=== PATIENT | female | born 1940 | race Caucasian/White ===

== ENCOUNTER 2018-01-04 02:01 | Inpatient (IN) | payer MEDICARE, OTHER ==
--- NOTE | 2017-12-24 15:49 | HISTORY AND PHYSICAL ---
DATE OF ADMISSION: January 04, 2018 IDENTIFICATION/CHIEF COMPLAINT Lenora is a 75-year-old woman with the chief complaint of right knee pain. HISTORY OF PRESENT ILLNESS Patient has a long-standing history of knee arthritis, progressively painful and debilitating and refractory to conservative care. Surgery is indicated to relieve symptoms after failure of nonoperative measures. PAST MEDICAL HISTORY History of bleeding ulcer. She is a [employer] and will not accept blood products. PAST SURGICAL HISTORY * Ulcer surgery. * Hernia repair. * Appendectomy. * Treatment of a lump in the neck. * Shoulder surgery. * Foot surgery. * Hysterectomy. * Stomach bypass. * Cholecystectomy. ALLERGIES 1. PENICILLIN. 2. TETRACYCLINE. 3. SULFA. 4. She is sensitive to ASPIRIN which aggravates her ulcer. 5. She also is intolerant of CODEINE. CURRENT MEDICATIONS * Mobic 50 mg p.o. q.day. * Lasix 40 mg p.o. q.day p.r.n. SOCIAL HISTORY Negative for tobacco and alcohol use. FAMILY HISTORY Notable for a sister with PR and a mother who from a stroke. REVIEW OF SYSTEMS Notable for bladder frequency. PHYSICAL EXAMINATION: GENERAL: This is a well-developed, well-nourished female who appears staged age. HEENT: Normocephalic, atraumatic. NECK: Supple. LUNGS: Clear. HEART: Regular. ABDOMEN: Soft. ORTHOPEDIC EXAM: She has valgus deformity of the knee. She has an effusion present. Crepitus is noted. She is mildly stiff at the end range. The knee is grossly stable. Extensor function is intact. Skin is intact. Calves are nontender. Neurovascular function is intact. IMAGING Radiographs demonstrate end-stage knee arthritis. ASSESSMENT Right knee degenerative joint disease, progressively painful and debilitating and refractory to conservative care. PLAN Per patient request we are going to proceed with total knee arthroplasty. The nature of the procedure, risks, benefits, the anticipated rehabilitative course were reviewed. The risks include, but are not limited to , major medical or anesthetic complication, infection, neurovascular injury, blood transfusion, stiffness, scarring, fracture, tendon rupture or instability, implant loosening , migration or failure, persistent or recurrent pain, need for additional surgery and other unforeseen. She understands and wishes to proceed. A signed permit was placed in the chart. No guarantees are given or implied. STU
[2018-01-04] VITALS (13 sets, daily range): BP systolic 101–155; BP diastolic 42–84
[~2018-01-04] VITALS: Ht 157.5 cm; Wt 94.3 kg
[~2018-01-04 02:01] MED LIST: ALEVE; ASPI81TA15 PO; CLI150 PO; COLON CLEANSE; DAILY VITAMIN; MELO-207 PO; NAPR220C12 PO; OXYGEN INH; PAPAYA; PER PO; TRA50 PO
[2018-01-04] MEDS ORDERED: LIDOCAINE MPF 1% 5 ML VIAL ONE (09:30)
[2018-01-04] MEDS ORDERED: PROPOFOL EMUL(*) 10MG/ML 20 ML 20 ML ONE (09:30)
[2018-01-04] MEDS ORDERED: ONDANSETRON 4 MG/2 ML VIAL ONE (09:30)
[2018-01-04] MEDS ORDERED: DEXAMETHASONE SOD 4 MG/ML VIAL ONE (09:30)
[2018-01-04] MEDS ORDERED: cloNIDine EPIDUR INJ 100MCG/ML 40 MCG, ROPIVACAINE 0.5% 20 ML VIAL 25 ML, EPINEPHrine H... INJ ONE (11:00)
[2018-01-04] MEDS ORDERED: CLINDAMYCIN(*) 900 MG/NS 50 ML 50 ML IVPB ONE (11:00)
[2018-01-04] MEDS ORDERED: TRANEXAMIC AC 1000 MG/10ML SDV 1,000 MG in DEXTROSE 5% 50 ML BAG 50 ML IV ONE (11:00)
[2018-01-04] MEDS ORDERED: MIDAZOLAM 2 MG/2 ML VIAL IVP PRN (11:00)
[2018-01-04] MEDS ORDERED: LIDOCAINE/SOD BICARB 8.4% SYR ID ONE (11:00)
[2018-01-04] MEDS ORDERED: NORMOSOL R SOLN(*) 1000 ML BAG 1,000 ML IV PRN ×2 (11:00→16:40)
[2018-01-04] MEDS ORDERED: ACETAMINOPHEN 500 MG TAB PO ONE (11:00)
[2018-01-04] MEDS ORDERED: PREGABALIN 75 MG CAPSULE PO ONE (11:00)
[2018-01-04] MEDS ORDERED: FAMOTIDINE 20 MG TAB PO ONE (11:00)
[2018-01-04] MEDS ORDERED: fentaNYL CITR 100 MCG/2 ML AMP ONE ×2 (11:53→14:28)
[2018-01-04] MEDS ORDERED: METOCLOPRAMIDE 10 MG/2 ML SDV ONE (11:55)
[2018-01-04] MEDS ORDERED: NS(*) 0.9% 250 ML BAG 0 ML ONE (12:01)
[2018-01-04] MEDS ORDERED: ePHEDrine 25 MG/5 ML DISP.SYR IVP ONE (13:08)
--- NOTE | 2018-01-04 14:53 | RADIOLOGY IMAGING REPORT ---
FACILITY: [facility] PATIENT NAME: Lenora Jones : 1940 MR: [id number] V: [id number] EXAM DATE: ORDERING PHYSICIAN: AUDRA STONER TECHNOLOGIST: Location: [facility] Patient: Lenora Jones : 1940 Visit/Account:[id number] Date of Sevice: 01/04/2018 KNEE LIMITED RIGHT Indication: Postop knee Comparison: None available Findings: Postoperative films from three part TKA. Components appear well aligned. No abnormal lucencies are identified. Alignment is neutral. IMPRESSION: 1. Unremarkable appearing postop TKA Report Dictated By: Gian Jonas at 01/04/2018 2:47 PM Report E-Signed By: Gian Jonas at 01/04/2018 2:48 PM WSN:[id number]
--- NOTE | 2018-01-04 16:25 | Hospitalist Consultation ---
History of Present Illness Requesting Physician Dr. Gallardo Reason for Consult Medical Management Chief Complaint s/p right total knee replacement History of Present Illness She was admitted s/p right total knee replacement. It is reported the surgery went well and without complication. History Problems: (1) History of gastric bypass (2) History of bleeding ulcers Status: Resolved Home Meds Reported Medications Meloxicam (MELOXICAM) 15 Mg Tablet, 15 MG PO QDAY 12/28/17 Naproxen Sodium (ALEVE) 220 Mg Capsule, 220 MG PO TID Y for PAIN, CAPSULE 12/28/17 Discontinued Reported Medications Oxygen (Oxygen) 2 L Inha, 2 L INH PRN 09/06/12 Aspirin (ASPIRIN) 81 Mg Tablet.dr, 81 MG PO QDAY 09/06/12 Oxycodone/Acetaminophen (OXYCODONE/ACETAMINOPHEN 5MG/325 MG) 5 Mg/325 Mg Tab, 1 - 2 TAB PO Q4-6H Y 09/05/12 Clindamycin Hcl (Cleocin) 150 Mg Cap, 300 MG PO Q8H 09/05/12 Allergies: Coded Allergies: codeine (Verified Allergy, Intermediate, NAUSEA/VOMITING, 12/29/17) oxytetracycline (Verified Allergy, Intermediate, RASH, 12/29/17) Penicillins (Verified Allergy, Mild, RASH, 09/02/12) Sulfa (Sulfonamide Antibiotics) (Verified Allergy, Mild, RASH, 09/02/12) aspirin (Verified Allergy, Mild, RASH, 09/02/12) Patient History: FH: CVA (cerebrovascular accident) MOTHER FH: ME (myocardial infarction) BROTHER OR SISTER FH: Parkinson's disease FATHER Hx Smoking: No Smoking Status: Never Smoker Caffeine Intake: Coffee Caffeine/Cups Per Day: 3 CUPS DAILY Hx Alcohol Use: No Hx Substance Use Disorder: No Social Drug Use: Never History of IV Drug Use: No Review of Systems All Systems Reviewed/Normal: Yes, Except as Noted Exam Vital Signs Vital Signs Date Time Temp Pulse Resp B/P (MAP) Pulse Ox O2 Delivery O2 Flow Rate FiO2 01/04/18 16:00 85 116/58 (77) 93 01/04/18 15:44 Nasal Cannula 4.0 01/04/18 15:31 97.6 20 General Appearance: Alert, Awake, No Acute Distress, Afebrile Neuro: No Gross deficits Cardiovascular: Regular Rate and Rhythm Respiratory: No Respiratory Distress, Clear to Auscultation GI: Abd Soft and Non-Tender Extremities: No Edema Psych: Alert & Oriented X3, Appropriate Mood & Affect Assessment and Plan Problems: (1) Status post total right knee replacement Status: Acute Assessment & Plan: Followed by Dr. Gallardo. She will be placed on Aspirin 81mg twice daily for DVT prophylaxis secondary to history of bleeding ulcers. (2) History of bleeding ulcers Status: Resolved Assessment & Plan: She has a history of bleeding ulcers. She did require a surgery to repair the ulcer. We will place her on Protonix daily to help with aspirin to reduce the risk of bleeding ulcers. Venous Thromboembolism Antithrombotics Is Pt On Any Antithrombotics?: No Exam Sepsis Risk: No Definite Risk ABHILASH KHOURY TILESETTER January 04, 2018 16:25
[2018-01-04] MEDS ORDERED: BISACODYL 10 MG SUPP PR PRN (16:40)
[2018-01-04] MEDS ORDERED: PROMETHAZINE 25 MG/ML 1 ML AMP IVP PRN (16:40)
[2018-01-04] MEDS ORDERED: BENZOCAINE/MENTHOL 1 EACH LOZG PO PRN (16:40)
[2018-01-04] MEDS ORDERED: diphenhydrAMINE 50 MG/ML VIAL IVP PRN (16:40)
[2018-01-04] MEDS ORDERED: MAGNESIUM HYDROXIDE* 30ML UDCP PO PRN (16:40)
[2018-01-04] MEDS ORDERED: FLUSH 10 ML SYR IVP PRN (16:40)
[2018-01-04] MEDS ORDERED: ZOLPIDEM TARTRATE 5 MG TAB PO PRN (16:40)
[2018-01-04] MEDS ORDERED: ACETAMINOPHEN 325 MG TAB PO PRN (16:40)
[2018-01-04] MEDS ORDERED: diphenhydrAMINE 25 MG CAP PO PRN (16:40)
[2018-01-04] MEDS: APAP/HYDROCODONE 325/7.5 TAB PO PRN ×2 (16:48→22:07)
[2018-01-04] MEDS: IBUPROFEN 800 MG TAB PO SCH (16:48)
[2018-01-04] MEDS: DIAZEPAM 5 MG TAB PO PRN (19:40)
[2018-01-04] MEDS: CLINDAMYCIN(*) 900 MG/NS 50 ML 50 ML IVPB SCH (19:41)
--- NOTE | 2018-01-04 20:31 | OPERATIVE REPORT 1 ---
EVENT DATE: January 04, 2018 SURGEON: Wally Gallardo MD ANESTHESIOLOGIST: Juan Carlos Kunz MD ANESTHESIA: General plus spinal. BOTTLE CASER: RACHEL Cuellar PREOPERATIVE DIAGNOSIS Right knee degenerative joint disease. POSTOPERATIVE DIAGNOSIS Right knee degenerative joint disease. PROCEDURE PERFORMED Right total knee arthroplasty. ESTIMATED BLOOD LOSS Minimal. DRAINS None. SPECIMENS None. COMPLICATIONS None apparent. TOURNIQUET TIME 46 minutes IMPLANTS USED CSMGathlon Knee System with a 4 right PS femur, 4 standard tibial baseplate, 33 mm universal symmetric, all-polyethylene patellar button, and an 11 mm PS tibial tray liner. Polyethylene is X3. INDICATIONS Adriana has intractable pain related to end-stage knee arthritis. Surgery is indicated to relieve pain and improve function after failure of nonoperative measures. DESCRIPTION OF PROCEDURE Patient is taken to the operating room and placed supine on the operating table. General anesthesia is induced after spinal block is administered by the anesthesiologist. Antibiotics and TXA are administered IV. Right lower extremity is prepped and draped in the usual sterile fashion for knee arthroplasty. Limb exsanguinated with an Esmarch bandage. Tourniquet inflated to 275 mmHg. Midline incision is made, carried down through the skin and subcutaneous tissue to the extensor mechanism. Medial parapatellar arthrotomy is performed. Patella is everted. Knee is brought into the flexed position. Fat pad, anterior horns of the menisci, and the PCL are resected. There is no ACL. Subperiosteal capsule released is performed around the upper portion of the tibial plateau. A step drill is used to enter the distal femur. A 10-inch long alignment guide is used to engage the isthmus, cut set for 6 degrees of valgus relative to the anatomic axis. The 10 mm resection block is applied, pinned, and cuts made with an oscillating saw. The AP sizing guide is applied, positioned for 3 degrees of external rotation relative to the posterior condyles. A size 4 is optimal without risk of notching. The four-in-one cutting block is applied. Anterior, posterior, posterior chamfer, and anterior chamfer cuts are made respectively. PS block is applied and centered. Medial and lateral bone is removed from the box. Trial femur has nice [id number] fit. Attention is turned to tibial preparation. The extramedullary guide is applied, positioned for varus, valgus, posterior slope, and rotation. This is set to resect 2 mm from the relatively deficient lateral tibial plateau. It is dropped down a millimeter or two to ensure an adequate cut. Block is pinned. Extramedullary alignment check is made. Cuts made with an oscillating saw. In order to balance the knee, some of the IT band is released subperiosteally off Gerdy tubercle, and the popliteus is recessed out of its femoral hiatus. This creates balanced and symmetric gaps. The size 4 tibial baseplate provides optimum bony coverage without soft tissue overhang. This is inserted along with the trial liner and trial femur. Knee is brought to extension. Patella is everted and taken from the starting thickness of 22 to a residual of 14 with a patellar clamp and oscillating saw. The 33 provides optimum bony coverage without soft tissue overhang. Lug holes are drilled. Patella does not track properly. Lateral retinaculum is tight despite appropriate rotational alignment of the other components. Lateral release is required. This is performed inside-out with electrocautery using standard technique. Subsequently , the patella traces nicely. Final tibial preparation consists of assuring appropriate rotational and translational positioning of the component. The boss is reamed. Fin is punched. Surfaces are copiously lavaged. Mixed polymethyl methacrylate is made, and the components are cemented in a single stage. Once the cement is fully polymerized, tourniquet is deflated. Hemostasis is assured. The 11 PS tibial tray liner fills up the gap ideally. The actual liner is then inserted and locked into the tibial baseplate. Hemostasis is assured. Wound is copiously lavaged. Arthrotomy is closed in flexion with #2 Ethibond, subcutaneous tissue with 3-0 Vicryl, skin with surgical laurent. Xeroform and 4 x 4's applied as a dry, sterile dressing, a compression wrap, and a rehab brace. The patient was awakened from anesthesia and taken to the recovery room in stable condition having tolerated the procedure well. Plan is for standard TKA rehab protocol. [facility]
[2018-01-05] MEDS: IBUPROFEN 800 MG TAB PO SCH ×3 (00:14→16:44)
[2018-01-05] MEDS: APAP/HYDROCODONE 325/7.5 TAB PO PRN ×3 (02:17→17:41)
[2018-01-05] MEDS: DIAZEPAM 5 MG TAB PO PRN ×2 (04:58→22:08)
[2018-01-05] MEDS: CLINDAMYCIN(*) 900 MG/NS 50 ML 50 ML IVPB SCH ×2 (04:58→11:27)
[2018-01-05 05:00] VITALS: BP 108/62
[2018-01-05 07:40] VITALS: BP 118/52
[2018-01-05] MEDS: PANTOPRAZOLE SOD 40 MG TABEC PO SCH (08:26)
[2018-01-05] MEDS: ASPIRIN 81 MG ENTERIC COATED PO SCH ×2 (08:26→22:08)
[2018-01-05] MEDS ORDERED: ASPIRIN 325 MG TAB PO SCH (09:00)
--- NOTE | 2018-01-05 11:17 | Hospitalist Progress Note ---
Subjective Progress Notes Subjective She has no complaints this morning. Patient Complains of: Cardiovascular: No: Chest Pain Respiratory: No: Shortness of Breath Physical Exam Vital Signs Date Time Temp Pulse Resp B/P (MAP) Pulse Ox O2 Delivery O2 Flow Rate FiO2 01/05/18 07:52 95 Nasal Cannula 4.0 01/05/18 07:40 97.9 70 118/52 (74) 01/04/18 19:40 97.0 01/04/18 15:31 20 Intake and Output 01/06/18 01:00 Intake Total 770 ml Balance 770 ml Intake Oral 720 ml IV Total 50 ml General Appearance: Alert, Awake, No Acute Distress, Afebrile Neuro: No Gross deficits Cardiovascular: Regular Rate and Rhythm Respiratory: No Respiratory Distress, Clear to Auscultation Extremities: Perfused, No Edema Psych: Alert & Oriented X3, Appropriate Mood & Affect Assessment and Plan Problems: (1) Status post total right knee replacement Status: Acute Assessment & Plan: Followed by Dr. Gallardo. She will be placed on Aspirin 81mg twice daily for DVT prophylaxis secondary to history of bleeding ulcers. (2) History of bleeding ulcers Status: Resolved Assessment & Plan: She has a history of bleeding ulcers. She did require a surgery to repair the ulcer. We will place her on Protonix daily to help with aspirin to reduce the risk of bleeding ulcers. Exam Sepsis Risk: No Definite Risk ABHILASH KHOURY GIRLS TENNIS COACH January 05, 2018 11:17
[2018-01-05 15:07] VITALS: BP 125/69
[2018-01-05 17:44] VITALS: Ht 157.5 cm; Wt 94.3 kg
[2018-01-05 20:17] VITALS: BP 111/55
[2018-01-05 22:09] VITALS: BP 114/48
[2018-01-06] MEDS: IBUPROFEN 800 MG TAB PO SCH ×3 (01:25→17:37)
[2018-01-06 03:22] VITALS: BP 124/56
[2018-01-06] MEDS: APAP/HYDROCODONE 325/7.5 TAB PO PRN ×4 (03:23→21:47)
[2018-01-06 07:30] VITALS: BP 129/63
[2018-01-06] MEDS: PANTOPRAZOLE SOD 40 MG TABEC PO SCH (09:53)
[2018-01-06] MEDS: ASPIRIN 81 MG ENTERIC COATED PO SCH ×2 (09:53→20:49)
--- NOTE | 2018-01-06 10:20 | Hospitalist Progress Note ---
Subjective Progress Notes Subjective She has no concerns this morning. She reports she is still a little "wobbly". Patient Complains of: Cardiovascular: No: Chest Pain Respiratory: No: Shortness of Breath Physical Exam Vital Signs Date Time Temp Pulse Resp B/P (MAP) Pulse Ox O2 Delivery O2 Flow Rate FiO2 01/06/18 07:30 99.0 89 14 129/63 (85) 95 Nasal Cannula 3.0 01/04/18 19:40 97.0 Intake and Output 01/07/18 07:00 Intake Total 500 ml Balance 500 ml Intake Oral 500 ml # Voids 1 General Appearance: Alert, Awake, No Acute Distress, Afebrile Neuro: No Gross deficits Cardiovascular: Regular Rate and Rhythm Respiratory: No Respiratory Distress, Clear to Auscultation Extremities: Perfused, No Edema Psych: Alert & Oriented X3, Appropriate Mood & Affect Assessment and Plan Problems: (1) Status post total right knee replacement Status: Acute Assessment & Plan: Followed by Dr. Gallardo. She will be placed on Aspirin 81mg twice daily for DVT prophylaxis secondary to history of bleeding ulcers. (2) History of bleeding ulcers Status: Resolved Assessment & Plan: She has a history of bleeding ulcers. She did require a surgery to repair the ulcer. We will place her on Protonix daily to help with aspirin to reduce the risk of bleeding ulcers. Exam Sepsis Risk: No Definite Risk ABHILASH KHOURY January 06, 2018 10:20
[2018-01-06 13:31] VITALS: BP 121/57
[2018-01-06 16:02] VITALS: BP 112/56
[2018-01-06] MEDS ORDERED: ASPI81TA86 PO (16:42)
[2018-01-06] MEDS ORDERED: PANT40TA65 PO (16:42)
[2018-01-06 19:43] VITALS: BP 110/50
[2018-01-07 00:50] VITALS: BP 132/55
[2018-01-07 02:53] VITALS: BP 118/54
[2018-01-07] MEDS: IBUPROFEN 800 MG TAB PO SCH ×2 (07:37→08:13)
[2018-01-07 07:40] VITALS: BP 127/60
[2018-01-07] MEDS ORDERED: HYDR-4308 PO (08:10)
[2018-01-07] MEDS: ASPIRIN 81 MG ENTERIC COATED PO SCH (08:13)
[2018-01-07] MEDS: PANTOPRAZOLE SOD 40 MG TABEC PO SCH (08:13)
[2018-01-07] MEDS: APAP/HYDROCODONE 325/7.5 TAB PO PRN ×2 (08:13→12:24)
--- NOTE | 2018-01-07 10:40 | Hospitalist Progress Note ---
Subjective Progress Notes Subjective She has no concerns this morning. She had no acute events overnight. Patient Complains of: Cardiovascular: No: Chest Pain Respiratory: No: Shortness of Breath Physical Exam Vital Signs Date Time Temp Pulse Resp B/P (MAP) Pulse Ox O2 Delivery O2 Flow Rate FiO2 01/07/18 08:07 Nasal Cannula 2.0 01/07/18 08:04 76 01/07/18 07:40 98.3 83 14 127/60 (82) 01/04/18 19:40 97.0 Intake and Output 01/08/18 01:00 Intake Total 600 ml Balance 600 ml Intake Oral 600 ml # Voids 1 General Appearance: Alert, Awake, No Acute Distress, Afebrile Neuro: No Gross deficits Cardiovascular: Regular Rate and Rhythm Respiratory: No Respiratory Distress, Other (Right lower lobe crackles) GI: Soft and Non-Tender Extremities: Edema (2+ pitting edema to right lower extremity) Psych: Alert & Oriented X3, Appropriate Mood & Affect Assessment and Plan Problems: (1) Status post total right knee replacement Status: Acute Assessment & Plan: Followed by Dr. Gallardo. She will be placed on Aspirin 81mg twice daily for DVT prophylaxis secondary to history of bleeding ulcers. Encouraged patient to use Incentive Spirometry more to help with lungs. She will be given oxygen to use at all times. (2) History of bleeding ulcers Status: Resolved Assessment & Plan: She has a history of bleeding ulcers. She did require a surgery to repair the ulcer. We will place her on Protonix daily to help with aspirin to reduce the risk of bleeding ulcers. Exam Sepsis Risk: No Definite Risk ABHILASH KHOURYP January 07, 2018 10:39
[2018-01-07 10:41] VITALS: BP 132/66
== END 2018-01-07 13:00 | DRG 470 ==
LOC: OR 02:01 → EDBD 13:15 → MED 15:30
PROVIDERS: ADMIT Orthopaedic Surgery; ATTEND Orthopaedic Surgery
PROC: 0SRC0J9 Replacement of Right Knee Joint with Synthetic Substitute, Cemented, Open Approach (ICD-10-PCS; principal; 2018-01-04 11:59)
DX: M17.11 Unilateral primary osteoarthritis, right knee (principal); M21.061 Valgus deformity, not elsewhere classified, right knee; K21.9 Gastro-esophageal reflux disease without esophagitis; R39.15 Urgency of urination; Z90.710 Acquired absence of both cervix and uterus; J45.909 Unspecified asthma, uncomplicated; Z90.49 Acquired absence of other specified parts of digestive tract; Z88.0 Allergy status to penicillin; Z88.2 Allergy status to sulfonamides; Z88.8 Allergy status to other drugs, medicaments and biological substances; Z98.84 Bariatric surgery status
CPT/HCPCS: 36415; 86850; 86900; 86901; 97162; C1713; C1776; J0171; J0735; J1100; J1885; J2001; J2250; J2405; J2550; J2704; J2765; J2795; J3010; J3490; J7050; J7060; Q0163